=== PATIENT | female | born 1965 | race Caucasian/White ===

== ENCOUNTER 2025-01-12 09:35 | Emergency (ER) | payer OTHER ==
[2025-01-12 09:55] VITALS: TEMP 98.1
[2025-01-12 10:15] VITALS: O2SAT 96
--- NOTE | 2025-01-12 10:15 | ERPHSYRPT ---
- History of Present Illness Time Seen by Provider: 01/12/25 10:10 Source: patient Exam Limitations: no limitations Patient Subjective Stated Complaint: patient fell in wet grass injured right ankle and right shoulder Triage Nursing Assessment: patient is alert nad oreinted x4 , amble to amblulate with assitance, right foot nad ankle swollen and bruised, right shoulder shows some deformity and swelling. skin warm dry and intact. Physician History: patient fell in wet grass injured right ankle and right shoulder Occurred: just prior to arrival Reason for Fall: slipped Injuries/Pain Location: upper extremity (right shoulder), lower extremity (right ankle) Loss of Consciousness: no loss of consciousness Quality: throbbing Severity of Pain-Max: moderate Severity of Pain-Current: moderate Associated Symptoms (Fall): denies symptoms Body Map: 1 - pain 2 - pain Allergies/Adverse Reactions: prednisone Allergy (Verified 01/12/25 09:45) Hx Tetanus, Diphtheria Vaccination/Date Given: Yes Hx Influenza Vaccination/Date Given: Yes Hx Pneumococcal Vaccination/Date Given: Yes Immunizations Up to Date: Yes Travel Risk - International Travel Have you traveled outside of the country in past 3 weeks: No - Emerging Infectious Disease Are you exhibiting symptoms associated with any current EIDs: No - Review of Systems Constitutional: No Fever, No Chills Eyes: No Symptoms Ears, Nose, & Throat: No Symptoms Respiratory: No Cough, No Dyspnea Cardiac: No Chest Pain, No Edema, No Syncope Abdominal/Gastrointestinal: No Abdominal Pain, No Nausea, No Vomiting, No Diarrhea Genitourinary Symptoms: No Dysuria Musculoskeletal: Fall, Joint Pain, Joint Swelling (right shoulder and right ankle), No Back Pain, No Neck Pain Skin: No Rash Neurological: No Dizziness, No Focal Weakness, No Sensory Changes Psychological: No Symptoms Endocrine: No Symptoms All Other Systems: Reviewed and Negative - Past Medical History Pertinent Past Medical History: Yes Neurological History: No Pertinent History ENT History: No Pertinent History Cardiac History: No Pertinent History Respiratory History: Other Musculoskeletal History: Fibromyalgia GI Medical History: Ulcer History: No Pertinent History Psycho-Social History: Anxiety, Depression Female Reproductive Disorders: No Pertinent History Other Medical History: alpha 1 anti-tripsin defenciency, myathenia gravis - Past Surgical History Past Surgical History: Yes Female Surgical History: Dilation & Curettage - Social History Smoking Status: Never smoker Drug Use: none - Social Determinants of Health Will the patient participate in the screening: Declined to provide - Nursing Vital Signs Nursing Vital Signs: Initial Vital Signs Blood Pressure 150/90 01/12/25 09:46 Pain Scale Pain Intensity 9 - Frederick Coma Score Best Eye Response (David): (4) open spontaneously Best Verbal Response (Frederick): (5) oriented Best Motor Response (Frederick): (6) obeys commands David Total: 15 - Physical Exam General Appearance: no apparent distress, alert Head Injury: no evidence of injury Eye Exam: PERRL/EOMI ENT Exam: airway nml Neck Exam: normal inspection, No tenderness Respiratory/Chest Exam: normal breath sounds, No chest tenderness, No respiratory distress Cardiovascular Exam: normal heart sounds, regular rate/rhythm Gastrointestinal Exam: soft, No tenderness, No distention, No guarding, No ecchymosis Back Exam: normal inspection, No vertebral tenderness Extremity Exam: normal inspection, pelvis stable, limited range of motion (right shoulder), pain with movement (right shoulder), No deformities Peripheral Pulses: carotid (R): 2+, carotid (L): 2+, femoral (R): 2+, femoral (L): 2+, dorsalis-pedis (R): 2+, dorsalis-pedis (L): 2+ Neurologic Exam: alert, oriented x 3, cooperative, sensation nml, No motor deficits Skin Exam: normal color, warm, dry SpO2 Interpretation: normal SpO2: 96 O2 Delivery: Room Air Procedures - Splinting Time of Procedure: 10:27 Location of Splint: Right, Ankle, Upper Arm (right head of humurus) Type of Splint: Walking Boot/Shoe (right foot) Splint Applied By: ED Nurse Pre-Proc Neuro Vasc Exam: normal Post-Proc Neuro Vasc Exam: neurovascular intact, good alignment - Radiology Exams Shoulder X-ray Interpretation: Interpreted by me, Reviewed by me, Displaced Fracture (right head of humurus) Ankle X-ray Interpretation: Interpreted by me, Reviewed by me, Non-displaced Fracture (lower end of fibula right) Ordered Tests: Active Orders 24 hr Category Date Time Status ANKLE (3 VIEWS) Stat Exams 01/12/25 09:51 Taken SHOULDER Stat Exams 01/12/25 09:51 Taken - Progress Progress: improved, pain not gone completely Counseled pt/family regarding: diagnosis, need for follow-up (ortho clinic Tomorrow) Medical Desision Making - Diagnostic Testing Diagnostic test were ordered, analyzed, and reviewed by me: Yes Radiological Interpretation: Interpreted by me, Reviewed by me - Risk of complications Low Risk: Low risk of morbidity from additional dx testing or treatment - Departure Departure Disposition: Home Clinical Impression: Shoulder fracture, right Qualifiers: Encounter type: initial encounter Fracture type: closed Qualified Code(s): S 42.91XA - Fracture of right shoulder girdle, part unspecified, initial encounter for closed fracture Closed right fibular fracture Qualifiers: Encounter type: initial encounter Fibula location: lateral malleolus Fracture alignment: nondisplaced Qualified Code(s): S82.64XA - Nondisplaced fracture of lateral malleolus of right fibula, initial encounter for closed fracture Condition: Stable Critical Care Time: No Referrals: FREDY STEEN NP [NON-STAFF PHY W/O PRIVILEGES, UNKNOWN] - [facility] M-F [id number] Instructions: Shoulder Fracture (DC), Lower leg fracture Additional Instructions: Discharge/Care Plan THELMABERE was seen on 01/12/25 in the Emergency Room. The patient was counseled regarding Diagnosis,Lab results, Imaging studies, need for follow up and when to return to the Emergency Room. Prescriptions given: Discharge Note I have spoken with the patient and/or caregivers. I have explained the patient's condition, diagnosis and treatment plan based on the information available to me at this time. I have answered the patient's and/or caregiver's questions and addressed any concerns. The patient and/or caregivers have as good understanding of the patient's diagnosis, condition and treatment plan as can be expected at this point. The vital signs have been stable. The patient's condition is stable and appropriate for discharge from the emergency department. The patient will pursue further outpatient evaluation with the primary care physician or other designated or consulting physician as outlined in the discharge instructions. The patient and/or caregivers are agreeable to this plan of care and follow-up instructions have been explained in detail. The patient and/or caregivers have received these instruction. The patient/and or caregivers are aware that any significant change in condition or worsening of symptoms should prompt an immediate return to this or the closest emergency department or call 911. BERE RENEE was seen on 01/12/25 n the Emergency Room. At that time you were treated for an emergent condition, during your visit Laboratory, Radiology and/or other procedures may have been ordered. It is very important that you follow-up with your Primary Care Physician within the next 24-48 hours to review your Emergency Room visit and the final results of testing that was ordered. Some test results such as Urine Cultures, Blood Cultures, and other cultures if ordered will not be finalized for 24-48 hours. If you do not have a Primary Care Provider please call the medical records department at [phone] to obtain a copy of your results or you may sign into our patient portal to obtain these results by visiting us @ [email or web address] and completing the following steps: 1. Click on the Patient Portal link 2. Click the Patient Self Enrollment Link to complete the enrollment form and entering your 3. Once the enrollment form is completed you will receive an email with a temporary ID and password at the email address you provided. 4. Next choose a user name and password. Your user name must be at least 4 characters long and your password must be at least 4 characters long. 5. Choose a security question from the list and provide your answer to the question. If you already have signed into the Health Portal you may access your Health Care Information 20/03 by the following steps: 1. Login to our website @ [email or web address] 2. Enter your original user name and password. FAQS The [facility] Health Portal is an online tool that contains your Lab Results, Radiology Reports, Visit History, Discharge Instructions and Health Summary Lab and Radiology Results will not be available for 72 hours on the portal. The Portal is a secure site, passwords are encryted and URLs are re-written so they cannot be copied and pasted. You and authorized family members are the only ones who can access your Portal. Also there is a timeout feature that protects your information if you leave the Portal page open. If you have technical difficulty please use the Contact Us link on the page this will allow you to submit any questions you have regarding the Portal or you may contact the Medical Record Department at [phone]. Prescriptions: Ketorolac Trometh 10 mg Tab [TORAdol 10 MG TABLET] 10 mg PO QID #20 tablet
[2025-01-12 10:38] VITALS: BP 139/99; PULSE 89; RESP 18
[2025-01-12] MEDS ORDERED: TORAdol 30 mg Injection ONE (10:42)
[2025-01-12] MEDS: TORAdol 30 mg Injection IM ONE (10:50)
--- NOTE | 2025-01-12 19:23 | XRAY ---
Indication: Pain following fall. Comparison: None 3 view right ankle demonstrates nondisplaced transverse fracture lateral malleolus with soft tissue swelling. Elsewhere osteopenia. No other bony, articular, or soft tissue abnormalities.
--- NOTE | 2025-01-12 19:25 | XRAY ---
Indication: Pain following fall. Comparison: None AP/scapular Y view right shoulder demonstrates mildly displaced comminuted cortical fracture lateral head humerus. Elsewhere osteopenia. No other bony, articular, or soft tissue abnormalities.
== END 2025-01-12 11:05 | disposition home or self-care (01) ==
LOC: ED 09:35
DX: S42.91XA Fracture of right shoulder girdle, part unspecified, initial encounter for closed fracture (principal); S82.64XA Nondisplaced fracture of lateral malleolus of right fibula, initial encounter for closed fracture; W01.0XXA Fall on same level from slipping, tripping and stumbling without subsequent striking against object, initial encounter; Z79.899 Other long term (current) drug therapy
CPT/HCPCS: 73030; 73610; 96372; 99283; J1885; L4386